=== PATIENT | female | born 1970 | race Caucasian/White ===

== ENCOUNTER 2018-03-09 10:33 | Outpatient (CLI) | payer BC, SELFPAY ==
[2018-03-09 12:12] LABS: Cholesterol 241 mg/dL (50-200); HDL Cholesterol 106 mg/dL (40-60); LDL CHOLESTEROL 124 mg/dL (<100); Triglyceride 63 mg/dL (30-150)
[2018-03-12 11:23] LABS: IgA 174 mg/dL (85-499); Interpretation SEE COMMENTS; Tissue Transglutaminase IgA <1.2 U/mL (<4.0)
== END 2018-03-09 10:53 ==
PROVIDERS: Internal Medicine; PCP Emergency Medicine; Visit Provider Internal Medicine Gastroenterology
DX: K52.9 Noninfective gastroenteritis and colitis, unspecified (principal); M19.90 Unspecified osteoarthritis, unspecified site; Z83.430 Family history of elevated lipoprotein(a)
CPT/HCPCS: 36415; 80061; 82784; 83516; 83721

== ENCOUNTER 2018-04-30 16:12 | Outpatient (REF) | payer BC, SELFPAY | END 2018-04-30 16:32 | LOC: LBN 16:12 | PROVIDERS: PCP Emergency Medicine; Visit Provider Internal Medicine Gastroenterology | DX: K52.9 Noninfective gastroenteritis and colitis, unspecified (principal) | CPT/HCPCS: 87329 ==

== ENCOUNTER 2019-03-22 16:17 | Outpatient (REF) | payer BC, SELFPAY ==
--- NOTE | 2019-03-22 15:00 | PAPFT_PTH ---
PATIENT: Freida Iyer LOC: [facility] U#:[id number] AGE/SX: 48/F ROOM: RE03/22/[address]: Nick Diez DO : 1970 BED: DIS: 03/22/2019 SPEC #: [id number] RECD: 03/22/19 18:25 STATUS: LOVE REJudd #: [id number] DOUGLAS: 03/22/19 15:[address]: Nick Diez DEPT: [facility] Cytology RECD BY: Isabel Melgar Tissues: 1 - CX/ENDOCX FOR PAP SMEARS Procedures: PAP THIN PREP/UVM Screening HPV DNA PROBE Comments: [id number]
== END 2019-03-22 16:37 ==
LOC: LBN 16:17
PROVIDERS: PCP Emergency Medicine; Visit Provider Emergency Medicine
DX: Z12.4 Encounter for screening for malignant neoplasm of cervix (principal); Z11.51 Encounter for screening for human papillomavirus (HPV)
CPT/HCPCS: 88142; 87624

== ENCOUNTER 2019-09-20 12:18 | Outpatient (REF) | payer BC, SELFPAY ==
--- NOTE | 2019-09-20 10:50 | PAPFT_PTH ---
PATIENT: Freida Iyer LOC: [facility] U#:[id number] AGE/SX: 49/F ROOM: RE09/20/[address]: Nick Diez DO : 1970 BED: DIS: 09/20/2019 SPEC #: [id number] RECD: 09/20/19 12:42 STATUS: LOVE REJudd #: [id number] DOUGLAS: 09/20/19 10:[address]: Nick Diez DEPT: [facility] Cytology RECD BY: Isabel Melgar Tissues: 1 - CX/ENDOCX FOR PAP SMEARS Procedures: PAP THIN PREP/UVM Screening HPV DNA PROBE Comments: [id number]
== END 2019-09-20 12:38 ==
LOC: LBN 12:18
PROVIDERS: PCP Emergency Medicine; Visit Provider Emergency Medicine
DX: Z12.4 Encounter for screening for malignant neoplasm of cervix (principal); Z11.51 Encounter for screening for human papillomavirus (HPV)
CPT/HCPCS: 88142; 87624

== ENCOUNTER 2021-04-07 01:23 | Outpatient (CLI) | payer BC, SELFPAY ==
[2021-04-07 16:58] LABS: Abs Immature Grans 0.01 10^3/uL (0.0-0.06); Absolute Basophil Count 0.03 10^3/uL (0.0-0.2); Absolute Eosinophil Count 0.13 10^3/uL (0.0-0.7); Absolute Lymphocyte Count 2.45 10^3/uL (1.2-3.4); Absolute Monocyte Count 0.56 10^3/uL (0.1-0.8); Absolute Neutrophil Count 3.19 10^3/uL (1.2-6.7); Basophils % 0.5; HCT 40.8 % (36.0-46.0); HGB 13.1 g/dL (11.2-15.7); Immature Grans % 0.2; Lymphocytes % 38.5; MCH 29.8 pg (27.0-33.0); MCHC 32.1 % (32.0-36.0); MCV 92.9 fL (80-95); MPV 8.7 fL (8.0-11.0); Monocytes % 8.8; Nucleated RBC 0 %; Platelet Count 235 10^3/uL (130-400); RBC 4.39 10^6/uL (3.93-5.22); RDW 11.9 % (11.7-14.6); RDW-SD 41.4 fL; WBC 6.37 10^3/uL (4.4-10.8)
[2021-04-07 17:08] LABS: ESR 6 mm/hr (0-20)
[2021-04-07 17:53] LABS: ALT 26 U/L (14-59); AST 25 U/L (15-37); Albumin 4.3 g/dL (3.4-5.0); Alkaline Phosphatase 81 U/L (46-116); Anion Gap 6.1 mmol/L (3-11); BUN 14 mg/dL (7-18); Bilirubin, Total 0.2 mg/dL (0.2-1.0); CO2 31.9 mmol/L (21.0-32.0); CREATININE 0.7 mg/dL (0.55-1.02); Calcium 9.4 mg/dL (8.5-10.1); Chloride 101 mmol/L (98-107); Glucose 74 mg/dL (74-106); Potassium 4.3 mmol/L (3.5-5.1); Sodium 139 mmol/L (136-145); Total Protein 7.9 g/dL (6.4-8.2)
== END 2021-04-07 01:24 | disposition home or self-care (01) ==
LOC: LBO 01:23
PROVIDERS: PCP Emergency Medicine; Visit Provider Nurse Practitioner
DX: M47.819 Spondylosis without myelopathy or radiculopathy, site unspecified (principal); Z79.899 Other long term (current) drug therapy
CPT/HCPCS: 36415; 80053; 85652; 85025; 86140

== ENCOUNTER 2021-11-30 18:58 | Outpatient (REF) | payer BC, SELFPAY ==
[2021-11-30 21:10] LABS: Bilirubin Negative (Negative); Blood Trace-lysed (Negative); Clarity Sl Cloudy (Clear); Glucose Negative (Negative); Ketones Negative (Negative); Leukocyte Esterase Moderate (Negative); Nitrite Negative (Negative); Urobilinogen 0.2 EU/dL (Up TO 0.2); pH 7.5 (5-8)
[2021-11-30 21:20] LABS: Bacteria Few HPF (Negative); Epithelial Cells Few HPF (Negative); Mucus Negative (Negative); Other Cells Few Transitional (Negative); WBC >50 HPF (0-5)
[2021-11-30 21:21] LABS: C & S Indicated? Yes; Crystals Few Amorphous HPF (Negative)
== END 2021-11-30 18:59 | disposition home or self-care (01) ==
LOC: LBN 18:58
PROVIDERS: PCP Family Medicine; Visit Provider Physician Assistant
DX: R39.9 Unspecified symptoms and signs involving the genitourinary system (principal)
CPT/HCPCS: 87077; 81003; 81015; 87086; 87186

== ENCOUNTER 2021-12-17 17:02 | Outpatient (REF) | payer BC, SELFPAY ==
--- NOTE | 2021-12-17 15:00 | PAPFT_PTH ---
PATIENT: Freida Iyer LOC: [facility] U#:[id number] AGE/SX: 51/F ROOM: RE12/17/[address]: Isela Christie : 1970 BED: DIS: 12/17/2021 SPEC #: [id number] RECD: 12/20/21 13:03 STATUS: LOVE REJudd #: [id number] DOUGLAS: 12/17/21 15:[address]: Isela Christie DEPT: [facility] Cytology RECD BY: Isabel Melgar Tissues: 1 - CX/ENDOCX FOR PAP SMEARS Procedures: PAP THIN PREP/UVM Screening HPV DNA PROBE Comments: [id number]
== END 2021-12-17 17:03 | disposition home or self-care (01) ==
LOC: LBN 17:02
PROVIDERS: PCP Family Medicine; Visit Provider Family Medicine
DX: Z12.4 Encounter for screening for malignant neoplasm of cervix (principal); Z77.9 Other contact with and (suspected) exposures hazardous to health; Z11.51 Encounter for screening for human papillomavirus (HPV)
CPT/HCPCS: 88142; 87624

== ENCOUNTER 2021-12-18 13:32 | Outpatient (REF) | payer BC, SELFPAY ==
[2021-12-18 17:26] LABS: Bilirubin Negative (Negative); Blood Trace-intact (Negative); Clarity Sl Cloudy (Clear); Glucose Negative (Negative); Ketones Negative (Negative); Leukocyte Esterase Large (Negative); Nitrite Negative (Negative); Urobilinogen 0.2 EU/dL (Up TO 0.2)
[2021-12-18 17:44] LABS: Bacteria Few HPF (Negative); C & S Indicated? C&S Done As Ordered; Casts Negative LPF (Negative); Crystals Negative HPF (Negative); Epithelial Cells Many HPF (Negative); Mucus Negative (Negative); WBC 20-50 HPF (0-5)
== END 2021-12-18 13:33 | disposition home or self-care (01) ==
LOC: LBN 13:32
PROVIDERS: PCP Family Medicine; Visit Provider Physician Assistant
DX: R30.0 Dysuria (principal); R50.9 Fever, unspecified
CPT/HCPCS: 81003; 81015; 87086

== ENCOUNTER 2022-09-02 01:15 | Outpatient (CLI) | payer BC, SELFPAY ==
[2022-09-02 12:49] LABS: Abs Immature Grans 0.01 10^3/uL (0.0-0.06); Absolute Basophil Count 0.03 10^3/uL (0.0-0.2); Absolute Lymphocyte Count 1.77 10^3/uL (1.2-3.4); Absolute Monocyte Count 0.36 10^3/uL (0.1-0.8); Basophils % 0.6; Eosinophils % 1.9; HGB 12.4 g/dL (11.2-15.7); Immature Grans % 0.2; Lymphocytes % 33.6; MCH 34.1 pg (27.0-33.0); MCHC 35.4 % (32.0-36.0); MCV 96 fL (80-95); MPV 9.2 fL (8.0-11.0); Monocytes % 6.8; Neutrophils % 56.9; Platelet Count 214 10^3/uL (130-400); RBC 3.64 10^6/uL (3.93-5.22); RDW 12.4 % (11.7-14.6); RDW-SD 41.3 fL; WBC 5.27 10^3/uL (4.4-10.8)
[2022-09-02 12:58] LABS: ESR 5 mm/hr (0-30)
[2022-09-02 13:04] LABS: ALT 19 U/L (14-59); AST 23 U/L (15-37); Alkaline Phosphatase 87 U/L (46-116); Anion Gap 8.6 mmol/L (3-11); BUN 18 mg/dL (7-18); Bilirubin, Total 0.5 mg/dL (0.2-1.0); C-Reactive Protein 0.13 mg/dL (0.0-0.3); CO2 27.4 mmol/L (21.0-32.0); CREATININE 0.9 mg/dL (0.55-1.02); Calcium 8.9 mg/dL (8.5-10.1); Chloride 103 mmol/L (98-107); Glucose 134 mg/dL (74-106); Potassium 3.8 mmol/L (3.5-5.1); Sodium 139 mmol/L (136-145); Total Protein 7.6 g/dL (6.4-8.2)
== END 2022-09-02 01:16 | disposition home or self-care (01) ==
LOC: LOS 01:16
PROVIDERS: PCP Family Medicine; Visit Provider Nurse Practitioner
DX: M47.819 Spondylosis without myelopathy or radiculopathy, site unspecified (principal); Z79.899 Other long term (current) drug therapy
CPT/HCPCS: 36415; 80053; 85652; 85025; 86140

== ENCOUNTER 2022-10-20 02:56 | Outpatient (CLI) | payer BC, SELFPAY ==
[2022-10-20 17:28] LABS: TSH (W/Ref FT4) 3.05 uIU/mL (0.36-3.74); Vitamin B12 1949 pg/mL (193-986)
== END 2022-10-20 02:57 | disposition home or self-care (01) ==
LOC: LBO 02:56
PROVIDERS: PCP Family Medicine; Visit Provider Family Medicine
DX: K52.831 Collagenous colitis; R53.83 Other fatigue
CPT/HCPCS: 36415; 82607; 84443

== ENCOUNTER 2022-10-22 07:25 | Outpatient (REF) | payer BC, SELFPAY | END 2022-10-22 07:26 | disposition home or self-care (01) | LOC: LBN 07:25 | PROVIDERS: PCP Family Medicine; Visit Provider Family Medicine | DX: R19.7 Diarrhea, unspecified (principal); R53.83 Other fatigue | CPT/HCPCS: 87329; 87177 ==

== ENCOUNTER 2023-04-28 17:49 | Outpatient (CLI) | payer BC, SELFPAY ==
[2023-04-28 16:22] LABS: Abs Immature Grans 0.01 10^3/uL (0.0-0.06); Absolute Basophil Count 0.03 10^3/uL (0.0-0.2); Absolute Eosinophil Count 0.08 10^3/uL (0.0-0.7); Absolute Lymphocyte Count 2.45 10^3/uL (1.2-3.4); Absolute Monocyte Count 0.47 10^3/uL (0.1-0.8); Absolute Neutrophil Count 3.53 10^3/uL (1.2-6.7); Basophils % 0.5; ESR 7 mm/hr (0-30); Eosinophils % 1.2; HCT 38.4 % (36.0-46.0); HGB 12.7 g/dL (11.2-15.7); Immature Grans % 0.2; Lymphocytes % 37.3; MCH 29.5 pg (27.0-33.0); MCHC 33.1 % (32.0-36.0); MCV 89 fL (80-95); MPV 8.3 fL (8.0-11.0); Monocytes % 7.2; Neutrophils % 53.6; Platelet Count 237 10^3/uL (130-400); RDW-SD 38.9 fL; WBC 6.57 10^3/uL (4.4-10.8)
[2023-04-28 17:06] LABS: ALT 18 U/L (14-59); AST 20 U/L (15-37); Albumin 3.9 g/dL (3.4-5.0); Alkaline Phosphatase 95 U/L (46-116); Anion Gap 9.7 mmol/L (3-11); BUN 14 mg/dL (7-18); Bilirubin, Total 0.2 mg/dL (0.2-1.0); CO2 27.3 mmol/L (21.0-32.0); CREATININE 0.8 mg/dL (0.55-1.02); Calcium 9.1 mg/dL (8.5-10.1); Chloride 103 mmol/L (98-107); Estimated GFR 89.15 (mL/min/1.73m2); Glucose 86 mg/dL (74-106); Potassium 3.7 mmol/L (3.5-5.1); Sodium 140 mmol/L (136-145); Total Protein 7.7 g/dL (6.4-8.2)
[2023-04-28 17:07] LABS: C-Reactive Protein < 0.50 mg/dL (<or=0.5)
[2023-04-28 17:23] LABS: Calculated LDL 148 mg/dL (<100); Cholesterol 239 mg/dL (<200); HDL Cholesterol 79 mg/dL (40-60); Triglyceride 64 mg/dL (<150)
[2023-05-01 10:16] LABS: Hepatitis C Ab w Rflx HCV PCR Negative (Negative)
[2023-05-01 10:39] LABS: HIV-1/2 Ag & Ab Screen Negative (Negative)
== END 2023-04-28 17:50 | disposition home or self-care (01) ==
LOC: LBO 17:49
PROVIDERS: PCP Family Medicine; Visit Provider Nurse Practitioner
DX: Z00.00 Encounter for general adult medical examination without abnormal findings (principal); Z11.4 Encounter for screening for human immunodeficiency virus [HIV]; Z13.6 Encounter for screening for cardiovascular disorders
CPT/HCPCS: 36415; 80053; 80061; 85652; 86803; 87389; 85025; 86140

== ENCOUNTER 2023-05-02 19:03 | Outpatient (REF) | payer BC, SELFPAY ==
[2023-05-02 20:28] LABS: C Diff PCR Negative (Negative)
[2023-05-03 23:03] LABS: Campylobacter PCR Negative (Negative); Salmonella PCR Negative (Negative); Shiga Toxin PCR Negative (Negative); Shigella/Enteroinvasive Ecoli Negative (Negative)
[2023-05-05 21:09] LABS: Calprotectin 186 mcg/g
== END 2023-05-02 19:04 | disposition home or self-care (01) ==
LOC: LBN 19:03
PROVIDERS: PCP Family Medicine; Visit Provider Internal Medicine Gastroenterology
DX: K52.9 Noninfective gastroenteritis and colitis, unspecified (principal); R19.7 Diarrhea, unspecified
CPT/HCPCS: 87329; 87493; 87505; 83993

== ENCOUNTER 2023-12-29 17:42 | Outpatient (REF) | payer BC, SELFPAY ==
[2023-12-29 21:06] LABS: Abs Immature Grans 0.01 10^3/uL (0.0-0.06); Absolute Basophil Count 0.04 10^3/uL (0.0-0.2); Absolute Eosinophil Count 0.22 10^3/uL (0.0-0.7); Absolute Lymphocyte Count 2.44 10^3/uL (1.2-3.4); Absolute Monocyte Count 0.51 10^3/uL (0.1-0.8); Absolute Neutrophil Count 4.26 10^3/uL (1.2-6.7); Basophils % 0.5 %; Eosinophils % 2.9 %; HCT 36.3 % (36.0-46.0); HGB 12.8 g/dL (11.2-15.7); Immature Grans % 0.1 %; Lymphocytes % 32.6 %; MCH 34.4 pg (27.0-33.0); MCHC 35.3 % (32.0-36.0); MCV 98 fL (80-95); MPV 9.3 fL (8.0-11.0); Monocytes % 6.8 %; Neutrophils % 57.1 %; Platelet Count 208 10^3/uL (130-400); RBC 3.72 10^6/uL (3.93-5.22); RDW 13.7 % (11.7-14.6); RDW-SD 40.5 fL; WBC 7.48 10^3/uL (4.4-10.8)
[2023-12-29 21:10] LABS: ESR 10 mm/hr (0-30)
[2023-12-29 21:19] LABS: ALT 27 U/L (14-59); AST 31 U/L (15-37); Alkaline Phosphatase 82 U/L (46-116); Anion Gap 11.7 mmol/L (3-11); BUN 27 mg/dL (7-18); Bilirubin, Total 0.29 mg/dL (0.2-1.0); C-Reactive Protein < 0.50 mg/dL (<or=0.5); CO2 27.3 mmol/L (21.0-32.0); CREATININE 1.3 mg/dL (0.55-1.02); Calcium 9.3 mg/dL (8.5-10.1); Chloride 101 mmol/L (98-107); Estimated GFR 49.48 (mL/min/1.73m2); Glucose 88 mg/dL (74-106); Potassium 4.4 mmol/L (3.5-5.1); Sodium 140 mmol/L (136-145); Total Protein 7.7 g/dL (6.4-8.2)
[2024-01-01 10:36] LABS: HBs Antibody, Quant 24.7 mIU/mL (See Note); Hepatitis B Surface Ab Positive (See Note)
[2024-01-01 10:42] LABS: Hepatitis B Surface Ag Negative (Negative)
== END 2023-12-29 17:43 | disposition home or self-care (01) ==
LOC: LBN 17:42
PROVIDERS: PCP Family Medicine; Visit Provider Family Medicine
DX: M47.819 Spondylosis without myelopathy or radiculopathy, site unspecified (principal); Z00.00 Encounter for general adult medical examination without abnormal findings; Z23 Encounter for immunization; F51.01 Primary insomnia; F41.9 Anxiety disorder, unspecified; J02.9 Acute pharyngitis, unspecified
CPT/HCPCS: 80053; 85652; 86706; 87340; 85025; 86140

== ENCOUNTER 2024-01-08 16:43 | Outpatient (CLI) | payer BC, SELFPAY ==
[2024-01-08 17:50] LABS: Bilirubin Negative (Negative); Blood Negative (Negative); Clarity Clear (Clear); Glucose Negative (Negative); Ketones Negative (Negative); Leukocyte Esterase Negative (Negative); Nitrite Negative (Negative); Specific Gravity <= 1.005 (1.005-1.025); Urobilinogen 0.2 mg/dL (Up to 0.2)
[2024-01-08 18:19] LABS: PROTEIN < 6.0 mg/dL
[2024-01-08 18:19] LABS: Anion Gap 8.8 mmol/L (3-11); BUN 11 mg/dL (7-18); CO2 30.2 mmol/L (21.0-32.0); CREATININE 0.8 mg/dL (0.55-1.02); Calcium 9.6 mg/dL (8.5-10.1); Chloride 104 mmol/L (98-107); Glucose 74 mg/dL (74-106); Potassium 4.3 mmol/L (3.5-5.1); Sodium 143 mmol/L (136-145)
[2024-01-08 18:25] LABS: COMMENT (LAB VIEW ONLY) 8.54 mg/dL
[2024-01-09 03:46] LABS: Bacteria Negative HPF (Negative); C & S Indicated? No; Casts Negative LPF (Negative); Crystals Negative HPF (Negative); Epithelial Cells Few HPF (Negative); Mucus Negative (Negative); RBC Negative HPF (0-2)
[2024-01-10 13:44] LABS: TB Interpretation Negative (Negative)
== END 2024-01-08 16:44 | disposition home or self-care (01) ==
LOC: LBO 16:45
PROVIDERS: PCP Family Medicine; Visit Provider Nurse Practitioner
DX: M47.819 Spondylosis without myelopathy or radiculopathy, site unspecified (principal); Z79.899 Other long term (current) drug therapy; Z11.9 Encounter for screening for infectious and parasitic diseases, unspecified
CPT/HCPCS: 36415; 80048; 81003; 81015; 82565; 84156; 86480

== ENCOUNTER 2024-09-20 10:38 | Outpatient (CLI) | payer BC, SELFPAY ==
[2024-09-20 12:24] LABS: ESR 8 mm/hr (0-30)
[2024-09-20 12:25] LABS: Abs Immature Grans 0.01 10^3/uL (0.0-0.06); HCT 39.2 % (36.0-46.0); HGB 13.4 g/dL (11.2-15.7); Immature Grans % 0.2 %; MCH 31.2 pg (27.0-33.0); MCHC 34.2 % (32.0-36.0); MCV 91 fL (80-95); MPV 8.9 fL (8.0-11.0); Platelet Count 211 10^3/uL (130-400); RBC 4.30 10^6/uL (3.93-5.22); RDW 12.2 % (11.7-14.6); RDW-SD 39.7 fL; WBC 4.99 10^3/uL (4.4-10.8)
[2024-09-20 12:41] LABS: ALT 27 U/L (14-59); AST 30 U/L (15-37); Albumin 4.4 g/dL (3.4-5.0); Alkaline Phosphatase 88 U/L (46-116); Anion Gap 8.9 mmol/L (3-11); BUN 17 mg/dL (7-18); Bilirubin, Total 0.5 mg/dL (0.2-1.0); CO2 29.1 mmol/L (21.0-32.0); Calcium 9.6 mg/dL (8.5-10.1); Chloride 100 mmol/L (98-107); Estimated GFR 103.35 (mL/min/1.73m2); Glucose 98 mg/dL (74-106); Potassium 4.4 mmol/L (3.5-5.1); Sodium 138 mmol/L (136-145); Total Protein 8.2 g/dL (6.4-8.2)
[2024-09-23 10:57] LABS: Lyme Ab w Rflx to Lyme Confirm Negative (Negative)
[2024-09-23 16:01] LABS: B. miyamotoi PCR Negative (Negative); Babesia divergens/MO-1 Negative (Negative); Ehrlichia muris eauclairensis Negative (Negative)
== END 2024-09-20 10:39 | disposition home or self-care (01) ==
PROVIDERS: Nurse Practitioner; PCP Family Medicine; Visit Provider Family Medicine
DX: Z20.9 Contact with and (suspected) exposure to unspecified communicable disease (principal); W57.XXXA Bitten or stung by nonvenomous insect and other nonvenomous arthropods, initial encounter; Z79.899 Other long term (current) drug therapy; M47.819 Spondylosis without myelopathy or radiculopathy, site unspecified
CPT/HCPCS: 36415; 80053; 85652; 87798; 85025; 86618